=== PATIENT | female | born 1980 | race Caucasian/White ===

== ENCOUNTER 2017-11-26 03:04 | Emergency (ER) | payer OTHER ==
[~2017-11-26] VITALS: Ht 170.2 cm; Wt 72.6 kg
--- NOTE | 2017-11-26 03:19 | NUR ---
[employer] at bedside to interview patient.
[2017-11-26] MEDS ORDERED: PROAIR HFA ORAL INH (200 PFS) (03:24)
[2017-11-26] MEDS ORDERED: [UNRECOGNIZED DRUG - OTHER] (03:24)
[2017-11-26] MEDS ORDERED: GABAPENTIN 100MG CAPSULES (03:24)
[2017-11-26] MEDS ORDERED: FLUTICASONE PROPIONATE 50 MCG (03:24)
[2017-11-26] MEDS ORDERED: ADVAIR (03:24)
--- NOTE | 2017-11-26 03:24 | NUR ---
Dr. Nettles at bedside for MSE.
--- NOTE | 2017-11-26 03:32 | NUR ---
Patient discharged to home in stable conditon. Written and verbal after care instructions given. Patient verbalizes understanding of instructions. Pt ambulated out of ER with steady gait, no acute signs of distress, VSS, all belongings taken.
[2017-11-26 03:34] VITALS: BP 167/107
== END 2017-11-26 03:34 | disposition home or self-care (01) ==
LOC: ER 03:07
DX: F10.129 Alcohol abuse with intoxication, unspecified (principal); J45.909 Unspecified asthma, uncomplicated
CPT/HCPCS: 99283; A4663

== ENCOUNTER 2019-01-01 19:36 | Inpatient (IN) | payer OTHER ==
[~2019-01-01] VITALS: Ht 170.2 cm; Wt 77.6 kg
[~2019-01-01 19:36] MED LIST: ADVAIR; FLUTICASONE PROPIONATE 50 MCG; GABAPENTIN 100MG CAPSULES; PROAIR HFA ORAL INH (200 PFS); [UNRECOGNIZED DRUG - OTHER]
[2019-01-01] MEDS ORDERED: IV NORMAL SALINE 1000 ML BAG IV ONE (19:45)
[2019-01-01] MEDS ORDERED: methylPREDNISolone SOD SUCC 125 MG/2 ML VIAL IV ONE (19:45)
[2019-01-01] MEDS ORDERED: IPRATROPIUM BROMIDE 0.5 MG/2.5 ML NEBU NEB ONE ×3 (19:45→20:45)
[2019-01-01] MEDS ORDERED: ALBUTEROL SULFATE 2.5 MG/3 ML NEBU NEB ONE ×3 (19:45→20:45)
[2019-01-01] MEDS ORDERED: ALBUTEROL SULFATE 2.5 MG/3 ML NEBU ONE (19:50)
--- NOTE | 2019-01-01 19:50 | NUR ---
Patient bib RA88 for c/o ETOH. A/Ox3. Speech is clear, speaks in complete sentences. No neuro deficits. Patient states she has not stopped drinking since she left [facility] x2 weeks ago. Last drink was a bottle of vodka. Respiratory wheezes audible, no cough. Denies any n/v/d. Patient in bed sr upx2, call light within reach. Fall precautions implemented per protocol.
[2019-01-01] MEDS ORDERED: IPRATROPIUM BROMIDE 0.5 MG/2.5 ML NEBU ONE (19:51)
[2019-01-01] MEDS ORDERED: methylPREDNISolone SOD SUCC 125 MG/2 ML VIAL ONE (19:53)
[2019-01-01 20:06] LABS: BASOPHILS # (AUTO) 0.1 K/uL (0.0-8.0); BASOPHILS % (AUTO) 0.9 % (0.0-2.0); EOSINOPHILS # (AUTO) 0.3 K/uL (0.0-0.7); EOSINOPHILS % (AUTO) 2.6 % (0.0-7.0); HEMATOCRIT 33.5 % (31.2-41.9); HEMOGLOBIN 11.1 g/dL (10.9-14.3); LYMPHOCYTES # (AUTO) 3.8 K/uL (20.0-40.0); LYMPHOCYTES % (AUTO) 33.8 % (20.5-51.5); MEAN CORPUSCULAR HEMOGLOBIN 28.4 uug (24.7-32.8); MEAN CORPUSCULAR HGB CONC 33 g/dL (32.3-35.6); MEAN CORPUSCULAR VOLUME 86.1 fL (75.5-95.3); MONOCYTES # (AUTO) 0.4 K/uL (2.0-10.0); MONOCYTES % (AUTO) 3.9 % (0.0-11.0); NEUTROPHILS # (AUTO) 6.6 K/uL (1.8-8.9); NEUTROPHILS % (AUTO) 58.8 % (38.5-71.5); PLATELET COUNT (AUTO) 646 K/uL (179-408); RED BLOOD CELL COUNT(AUTO) 3.89 MIL/uL (3.63-4.92); WHITE BLOOD COUNT (AUTO) 11.2 K/uL (3.8-11.8)
[2019-01-01 20:10] LABS: CREATININE 0.9 mg/dL (0.6-1.3); POTASSIUM 3.3 mmol/L (3.5-5.1)
[2019-01-01 20:16] LABS: BILIRUBIN,DIRECT 0.1 mg/dL (0.0-0.2); BILIRUBIN,TOTAL 0.2 mg/dL (0.2-1.0); TOTAL PROTEIN, SERUM 7.8 g/dL (6.4-8.2)
[2019-01-01] MEDS ORDERED: ALBU18HF2 IH (20:59)
[2019-01-01] MEDS ORDERED: GABAPENTIN PO (21:00)
[2019-01-01 21:24] LABS: *URINE HCG, QUAL NEGATIVE (NEGATIVE)
--- NOTE | 2019-01-01 21:30 | NUR ---
Patient attempted to elope facility, NSG supervisor nuclear medicine notified for sitter.
[2019-01-01 21:34] LABS: ABG HCO3 22.4 mmol/L; ABG PCO2 32.7 mmHg (35.0-45.0); ABG PH 7.453 (7.350-7.450); ABG PO2 76.9 mmHg (75.0-100.0); ABG SITE LEFT RADIAL; ABG TOTAL HEMOGLOBIN 11.5 G/dL (12.0-16.0); COHb 4.4 % (0.5-1.5); MetHb 0.1 % (0.0-1.5); VENT MODE ROOM AIR
[2019-01-01 21:37] LABS: *AMPHETAMINE, URINE NEGATIVE (NEGATIVE); *BARBITURATE, URINE NEGATIVE (NEGATIVE); *CANNABINOID, URINE NEGATIVE (NEGATIVE); *COCCAINE, URINE NEGATIVE (NEGATIVE); *OPIATE, URINE NEGATIVE (NEGATIVE); *PHENCYCLIDINE SCREEN,URINE NEGATIVE (NEGATIVE)
--- NOTE | 2019-01-01 21:40 | NUR ---
Security at bedside sitting for patient.
--- NOTE | 2019-01-01 22:16 | NUR ---
Sitter at bedside accompanying patient.
[2019-01-01] MEDS ORDERED: LEVOFLOXACIN 750 MG/D5W 150 ML PIGGYBACK IV ONE (22:30)
--- NOTE | 2019-01-01 22:42 | NUR ---
Patient attempted to elope facility. Security called.
--- NOTE | 2019-01-01 22:50 | NUR ---
Patient will be admitted here. Contacted [facility] for panel
[2019-01-01] MEDS ORDERED: ZIPRASIDONE MESYLATE 20 MG VIAL IM ONE (23:00)
--- NOTE | 2019-01-01 23:10 | NUR ---
Levaquin to be continued upstairs.
--- NOTE | 2019-01-01 23:10 | NUR ---
Report given to DANA Walters.
--- NOTE | 2019-01-01 23:12 | NUR ---
Levaquin 750mg started, but will be finished on inpatient floor.
--- NOTE | 2019-01-01 23:16 | NUR ---
Patient transported to floor in stable condition.
--- NOTE | 2019-01-01 23:40 | NUR ---
Admitted a 38 y.o female patient from ER via [facility] DX: alcohol intoxication. ANSELMO BANGURA noted. Ambulated to the BR; voided without difficulty. Routine admission and care discussed with patient; verbalized understanding. Wants IV to be transferred to another site. With on going [facility] from ER. New IV inserted to [facility] with #20 gauge needle. Addendum: 01/02/19 at 0119 by SHINE TINOCO RN Amended: Links added. Addendum: 01/02/19 at 0122 by SHINE TINOCO RN Amended: Links added.
[2019-01-01] MEDS ORDERED: ONDANSETRON 4 MG/2 ML VIAL IV PRN (23:45)
[2019-01-02] MEDS ORDERED: ALBUTEROL SULFATE 2.5 MG/3 ML NEBU NEB PRN
[2019-01-02 00:03] VITALS: BP 132/76
[2019-01-02] MEDS: LORAZEPAM 2 MG/1 ML VIAL IV PRN ×5 (00:15→20:54)
--- NOTE | 2019-01-02 00:15 | NUR ---
Patient requesting for medication for sleep. Moderately anxious but able to answer questions appropriately during admission process. Addendum: 01/02/19 at 0122 by SHIEN TINOCO RN Amended: Links added.
[2019-01-02] MEDS: IV 1/2NS 1000 ML 1,000 ML IV PRN ×2 (00:46→13:21)
[2019-01-02 01:11] VITALS: BP 125/72
--- NOTE | 2019-01-02 02:00 | NUR ---
Sleeping after Ativan IV.
[2019-01-02] MEDS: methylPREDNISolone SOD SUCC 40 MG/ML VIAL IV SCH ×3 (06:03→21:11)
--- NOTE | 2019-01-02 06:05 | NUR ---
Woke up; ambulated to the BR without problems. C/o being anxious again. Requesting for her breathing treatment; RT called. Monitor: SR. Medicated with Ativan IV.
[2019-01-02] MEDS: PANTOPRAZOLE SODIUM 40 MG TABLET.DR PO SCH (06:07)
[2019-01-02] MEDS: ALBUTEROL SULFATE 2.5 MG/ 0.5 ML NEBU NEB PRN ×2 (06:32→20:49)
[2019-01-02 06:36] LABS: BASOPHILS % (AUTO) 0.3 % (0.0-2.0); HEMATOCRIT 31.6 % (31.2-41.9); HEMOGLOBIN 10.5 g/dL (10.9-14.3); LYMPHOCYTES # (AUTO) 0.7 K/uL (20.0-40.0); LYMPHOCYTES % (AUTO) 10.3 % (20.5-51.5); MEAN CORPUSCULAR HGB CONC 33 g/dL (32.3-35.6); MEAN CORPUSCULAR VOLUME 87.4 fL (75.5-95.3); MONOCYTES % (AUTO) 0.3 % (0.0-11.0); NEUTROPHILS # (AUTO) 5.8 K/uL (1.8-8.9); NEUTROPHILS % (AUTO) 89.1 % (38.5-71.5); PLATELET COUNT (AUTO) 558 K/uL (179-408); RED BLOOD CELL COUNT(AUTO) 3.62 MIL/uL (3.63-4.92); WHITE BLOOD COUNT (AUTO) 6.5 K/uL (3.8-11.8)
[2019-01-02 06:37] VITALS: BP 121/70
[2019-01-02] MEDS: ACETAMINOPHEN 325 MG TABLET PO PRN ×3 (07:01→20:34)
[2019-01-02 07:12] LABS: BILIRUBIN,TOTAL 0.3 mg/dL (0.2-1.0); CREATININE 0.8 mg/dL (0.6-1.3); MAGNESIUM 1.4 mg/dL (1.8-2.4); PHOSPHOROUS 2.9 mg/dL (2.5-4.9); POTASSIUM 3.8 mmol/L (3.5-5.1); TOTAL PROTEIN, SERUM 7.4 g/dL (6.4-8.2)
--- NOTE | 2019-01-02 07:30 | NUR ---
PATIENT RECEIVED IN BED ASLEEP BUT EASILY AROUSABLE ON ROUNDS SHE IS ALERT AND ORIENTED DENIES PAIN OR DISCOMFORTS REMAIN ON IVF ORDERED WITH NO S/S OF INFILTERATION ON SITE CALL LIGHTS AND PERSONAL BELONGIONGS ARE WITHIN EASY REACH MADE COMFORTABLE AND WILL CONTINUE TO ONSERVE.
[2019-01-02] MEDS: MULTIVITAMINS,THERAPEUTIC TABLET PO SCH (08:29)
[2019-01-02] MEDS: THIAMINE HCL 100 MG TABLET PO SCH (08:30)
[2019-01-02] MEDS: FOLIC ACID 1 MG TABLET PO SCH (08:30)
[2019-01-02] MEDS ORDERED: MAGNESIUM OXIDE 400 MG TABLET PO ONE (08:45)
[2019-01-02] MEDS ORDERED: LEVOFLOXACIN 750 MG TABLET PO SCH (09:00)
[2019-01-02] MEDS: NICOTINE 14 MG/24HR PATCH TD SCH (09:02)
[2019-01-02] MEDS: CHLORDIAZEPOXIDE HCL 25 MG CAPSULE PO SCH ×2 (09:03→16:34)
--- NOTE | 2019-01-02 09:20 | NUR ---
MAG LEVEL IS 1.4 SEEN BY DENIS WITH NEW ORDER FOR REPLACEMENT AT THIS TIME AND NOTED
[2019-01-02] MEDS ORDERED: GABA-532 PO (11:36)
[2019-01-02] MEDS ORDERED: IBUP-1955 PO (11:38)
[2019-01-02] MEDS ORDERED: VITA-85A PO (11:41)
--- NOTE | 2019-01-02 11:51 | NUR ---
PATIENT STATED FEELING VERY ANXIOUS AND RESTLESS MEDICATED WITH ATIVAN ORDERED MADE COMFORTABLE WILL CONTINUE TO OBSERVE.
[2019-01-02 12:07] VITALS: BP 151/73
[2019-01-02 16:30] VITALS: BP 159/79
--- NOTE | 2019-01-02 16:34 | NUR ---
PATIENT SEEN BY THE ORGANIC SECTION TECHNICAL LEAD RE DISCHARGE PLANNING MOST LIKELY IN AM SHE WANTS TO GO TO [facility] FOR ALCOHOL TREATMENT ORGANIC SECTION TECHNICAL LEAD STATED SHE MADE CONTACT WITH THE [facility] AND PATIENT WILL NEED TO FOLLOW UP THE [facility] UPON DISCHARGE PATIENT NOTIFIED.CONTINUE TO FEEL ANXIOUS ATIVAN GIVEN ORDERED WILL CONTINUE TO OBSERRVE.
[2019-01-02] MEDS ORDERED: ZOLPIDEM 5 MG TABLET PO PRN (17:30)
--- NOTE | 2019-01-02 18:00 | NUR ---
RESTING AT THIS TIME SEEMS MORE COMFORTABLE WILL CONTINUE TO OBSERVE.
--- NOTE | 2019-01-02 19:20 | NUR ---
Received patient lying in bed. AAOX4. In no acute distress. Denies any pain or SOB. IV site on left FA intact and patent. IVF infusing. No anxiety noted at this time. NSR on tele at 79/min. Needs assessed and attended to. Safety measure initiated and call [place] within reach.
[2019-01-02 20:00] VITALS: BP 162/90
[2019-01-02] MEDS: CLONIDINE HCL 0.1 MG TABLET PO PRN (20:34)
--- NOTE | 2019-01-03 00:46 | NUR ---
Received pt in room, eyes closed. In no acute signs of distress. Sinus sachi on Tele, HR 58. Will continue to monitor.
[2019-01-03 00:48] VITALS: BP 160/72
[2019-01-03] MEDS: IV 1/2NS 1000 ML 1,000 ML IV PRN (01:41)
[2019-01-03 04:30] VITALS: BP 157/80
[2019-01-03] MEDS: LORAZEPAM 2 MG/1 ML VIAL IV PRN ×3 (05:05→15:31)
[2019-01-03] MEDS: methylPREDNISolone SOD SUCC 40 MG/ML VIAL IV SCH ×2 (05:09→15:28)
[2019-01-03] MEDS: CLONIDINE HCL 0.1 MG TABLET PO PRN (05:14)
[2019-01-03] MEDS: PANTOPRAZOLE SODIUM 40 MG TABLET.DR PO SCH (06:20)
--- NOTE | 2019-01-03 06:36 | NUR ---
SR ON TELE, HOWEVER SINUS JAMES, DOWN TO 45 HR AT TIMES WHEN ASLEEP. IN NO ACUTE SIGNS OF DISTRESS. ELEVATED BP CLONIDINE WAS GIVEN. ATIVAN WAS GIVEN FOR ANXIETY. IV FUIDS STILL INFUSING. CONTINUED TO MONITOR.
[2019-01-03 06:43] LABS: HEMATOCRIT 31.2 % (31.2-41.9); HEMOGLOBIN 10.1 g/dL (10.9-14.3); LYMPHOCYTES # (AUTO) 1.1 K/uL (20.0-40.0); LYMPHOCYTES % (AUTO) 6.8 % (20.5-51.5); MEAN CORPUSCULAR HEMOGLOBIN 28.4 uug (24.7-32.8); MEAN CORPUSCULAR HGB CONC 32 g/dL (32.3-35.6); MEAN CORPUSCULAR VOLUME 88.3 fL (75.5-95.3); MONOCYTES # (AUTO) 0.6 K/uL (2.0-10.0); MONOCYTES % (AUTO) 3.5 % (0.0-11.0); NEUTROPHILS # (AUTO) 14.4 K/uL (1.8-8.9); NEUTROPHILS % (AUTO) 89.7 % (38.5-71.5); PLATELET COUNT (AUTO) 480 K/uL (179-408); RED BLOOD CELL COUNT(AUTO) 3.54 MIL/uL (3.63-4.92)
[2019-01-03 06:55] LABS: CREATININE 0.7 mg/dL (0.6-1.3); MAGNESIUM 1.3 mg/dL (1.8-2.4); PHOSPHOROUS 3.7 mg/dL (2.5-4.9); POTASSIUM 3.9 mmol/L (3.5-5.1)
[2019-01-03 07:07] LABS: THYROID STIMULATING HORMONE 0.279 mIU/mL (0.358-3.740)
[2019-01-03] MEDS: MAGNESIUM SULFATE/D5W 100 ML IV SCH ×6 (09:00→11:47)
[2019-01-03] MEDS ORDERED: TRAZODONE 50 MG TABLET PO PRN (09:00)
[2019-01-03] MEDS ORDERED: IPRATROPIUM BROMIDE 0.5 MG/2.5 ML NEBU NEB PRN (09:00)
[2019-01-03] MEDS ORDERED: AZITHROMYCIN IV 500 MG in IV DEXTROSE 5% 250 ML IV SCH (09:00)
[2019-01-03] MEDS ORDERED: CEFTRIAXONE 1 G in IV DEXTROSE 5% 50 ML IV SCH (09:00)
[2019-01-03] MEDS: FOLIC ACID 1 MG TABLET PO SCH (09:04)
[2019-01-03] MEDS: CHLORDIAZEPOXIDE HCL 25 MG CAPSULE PO SCH (09:04)
[2019-01-03] MEDS: ACETAMINOPHEN 325 MG TABLET PO PRN (09:04)
[2019-01-03] MEDS: MULTIVITAMINS,THERAPEUTIC TABLET PO SCH (09:05)
[2019-01-03] MEDS: NICOTINE 14 MG/24HR PATCH TD SCH (09:05)
[2019-01-03] MEDS: THIAMINE HCL 100 MG TABLET PO SCH (09:05)
--- NOTE | 2019-01-03 09:47 | NUR ---
Patient went downstairs with superintendent institution to smoke, Javid oKEYD TO GO.
[2019-01-03 12:00] VITALS: BP 146/75
--- NOTE | 2019-01-03 13:00 | NUR ---
4 Bags was ordered, and i was delayed on the administration b/c patient had 2 ABX scheduled at the same time, so my last bag of MaG was scanned at 1300 and computer asked if i need to admin missed dose for 0900 am, and I clicked "ok". Just explaining if any confusion on the IV spread sheet will come up.
[2019-01-03 16:00] VITALS: BP 136/91
--- NOTE | 2019-01-03 17:15 | NUR ---
Patient desires to go out to smoke, explained hospital policy and offered Nicotine patch and Lorazepam but refused and wants to go AMA. Signed AMA form with risk and benefits explained. Saline lock removed. Medication returned. Went home per ambulatory, not in distress. [employer] Crafts Teacher informed.
--- NOTE | 2019-01-03 17:37 | NUR ---
Patient left aMa b/c she wasn't allowed to go smoke outside.
--- NOTE | 2019-01-03 17:48 | NUR ---
Track Grinder notified
== END 2019-01-03 15:10 | disposition left against medical advice (07) | DRG 141 ==
LOC: ER 19:41 → TELE3 23:06
PROVIDERS: ADMIT Internal Medicine; ATTEND Nurse Practitioner Acute Care
DX: J45.901 Unspecified asthma with (acute) exacerbation (principal); J15.9 Unspecified bacterial pneumonia; E44.1 Mild protein-calorie malnutrition; E83.42 Hypomagnesemia; F10.229 Alcohol dependence with intoxication, unspecified; F17.210 Nicotine dependence, cigarettes, uncomplicated; Y90.8 Blood alcohol level of 240 mg/100 ml or more; E66.9 Obesity, unspecified; Z68.26 Body mass index [BMI] 26.0-26.9, adult; Z59.0 Homelessness; F10.239 Alcohol dependence with withdrawal, unspecified
CPT/HCPCS: 36415; 36600; 70030-TC; 71045; 80307; 83690; 83735; 84100; 84443; 84481; 84703; 85025; 93005; 94640; 94664; A4663; G0378; G0480; J0456; J0696; J1956; J2060; J2920; J2930; J3475; J3486; J3490; J3590; J7030; J7050; J7060